=== PATIENT | male | born 1965 | race Caucasian/White ===

== ENCOUNTER 2025-03-24 16:15 | Outpatient (RCR) | payer BC, SELFPAY | END 2025-05-02 16:27 | disposition home or self-care (01) | PROVIDERS: PCP Family Medicine; Visit Provider Specialist/Technologist Athletic Trainer | DX: M25.562 Pain in left knee (principal); Z51.89 Encounter for other specified aftercare | CPT/HCPCS: 97110; 97140; 97161 ==